=== PATIENT | female | born 1990 | race Caucasian/White ===

== ENCOUNTER → 2018-02-14 16:24 | Outpatient (CLI) | payer MEDICAID, SELFPAY ==
[2018-02-17 12:52] LABS: HPV Reflexed? NOT INDICATED
== END ==
PROVIDERS: Visit Provider Obstetrics & Gynecology
DX: Z12.4 Encounter for screening for malignant neoplasm of cervix (principal)
CPT/HCPCS: 87624; 88175; G0145

== ENCOUNTER → 2018-02-17 13:00 | Outpatient (CLI) | payer MEDICAID, SELFPAY ==
[2018-02-17 17:44] LABS: Free T3 2.5 pg/mL (2.18-3.98); Prolactin 24.8 ng/mL; T4 Free Direct 0.76 ng/dL (0.76-1.46); Thyroid Stim Hormone (TSH) 1.01 uIU/mL (0.358-3.74)
== END ==
PROVIDERS: Visit Provider Obstetrics & Gynecology
DX: R63.5 Abnormal weight gain (principal)
CPT/HCPCS: 36415; 84146; 84439; 84443; 84481

== ENCOUNTER 2019-09-22 06:59 | Emergency (ER) | payer MEDICAID, SELFPAY ==
[2019-09-22 07:00] VITALS: BP 141/91; PULSE 78; RESP 18; TEMP 36.8; O2SAT 100; BMI 41.7
--- NOTE | 2019-09-22 07:14 | RAD_ITS ---
STUDY: X-RAY - PELVIS REASON FOR EXAM: Female, 29 years old. Patient fell down the stairs yesterday. Pain in lower back. TECHNIQUE: One view of the pelvis was obtained. COMPARISON: None. FINDINGS: There is a non-specific bowel gas pattern. Normal visualized soft tissue structures. Normal bilateral iliac wings, sacroiliac joints and visualized sacrum. Normal visualized bilateral superior and inferior pubic rami. Normal pubic symphysis. Normal ischial tuberosities. Normal visualized right femoral head. Normal right acetabulum. Normal right hip joint. Normal visualized left femoral head. Normal left acetabulum. Normal left hip joint. RAD/Pelvis 1 or 2 Views IMPRESSION: Normal x-ray examination of the pelvis. Electronically Signed: Jesus Johns, at 8:10 EDT Tel , Service support ,
--- NOTE | 2019-09-22 07:23 | RAD_ITS ---
STUDY: X-RAY - LUMBAR SPINE REASON FOR EXAM: Female, 29 years old. Patient fell down the stairs yesterday. Pain across lower back. TECHNIQUE: 3 view(s) of the lumbar spine were obtained. COMPARISON: None FINDINGS: Normal lumbar lordosis. There is no substantial scoliosis. There is a normal alignment of the vertebrae. Normal vertebral bodies. There is mild spurring. There is facet spurring and sclerosis. Normal disc space heights. There is no demonstrated fracture. The soft tissue structures are unremarkable. RAD/Lumbar Spine 2 or 3 Views IMPRESSION: Mild degenerative change. No acute fracture. Electronically Signed: Carlos Eduardo Modi MD at 8:09 EDT , Service support ,
--- NOTE | 2019-09-22 07:32 | ED.VISSUMM ---
- ER Visit Summary Date of Service: 09/22/19 Chief Complaint: [Fall] History of Present Illness: The patient is a 29 F [presents to the emergency department with a fall that occurred yesterday around 1:30 PM. Patient was coming down the steps outside the home when she fell backwards. Patient complaining of pain to both sides as well as lower back. Patient states that her pain was a 10 out of 10 this morning but she took some Tylenol. Patient states she was in so much pain that she was crying this morning. She has been ambulatory. She did not strike her head. No loss of consciousness. She denies any neck pain. She denies chest pain. She denies abdominal pain.] Patient denies any paresthesias in her legs or pain radiating down her legs. Physical Examination: [HEENT-PERRLA, EOMI. Cranial nerves II through XII grossly intact. TMs clear. Mucous membranes moist. No adenopathy. Cardiovascular-regular rate and rhythm without murmur or ectopy Lungs-clear to auscultation, chest wall stable without crepitus or subcu emphysema. No chest wall tenderness on palpation or percussion. Abdomen-normoactive bowel sounds, soft, nontender, no rebound or rigidity, no peritoneal signs. Back exam-patient does have some tenderness palpation over the lower lumbar spine. There is no ecchymosis or bruising noted. Patient has tenderness to both iliac crests and again there is no evidence of ecchymosis or bruising noted. Straight leg raises. No real tenderness over the hips. Pelvis is stable. Extremities-intact ?4, normal range of motion, normal pulses, atraumatic] Test Results: [Lumbar spine x-rays as well as x-rays of the pelvis were obtained and were read by myself as no acute fractures. Emergency Department Course and Treatment: [] Treatment Plan: [Patient will be given a prescription for Naprosyn and Flexeril. Patient advised to follow-up with primary care physician telephone order clerk room service for no doc within the next 5 to 7 days.] Disposition: [Discharged home in stable condition] Impression: [Mechanical fall Contusion back] This note was generated with [employer] dictation software. It may contain incorrect words, spelling, and punctuation that were not noted in review of the chart prior to signing
--- NOTE | 2019-09-22 07:38 | ED.DEP ---
ED Disposition - Plan for ED Patient: Instructions: ED Mechanical Fall, ED Contusion Back Prescriptions: cycloBENZAPRine HCl [Flexeril] 10 mg PO TID PRN #20 tab PRN Reason: Muscle Spasm Prescription Printed Naproxen [Naprosyn] 500 mg PO BID PRN #20 tab Prescription Printed Referrals: Marcos Anna III, MD [STAFF PHYSICIAN] - 5-7 Days
== END 2019-09-22 07:54 | disposition home or self-care (01) ==
LOC: ED 07:48
PROVIDERS: Emergency Provider Emergency Medicine
DX: S30.0XXA Contusion of lower back and pelvis, initial encounter (principal); W10.9XXA Fall (on) (from) unspecified stairs and steps, initial encounter; Y93.01 Activity, walking, marching and hiking; Y92.008 Other place in unspecified non-institutional (private) residence as the place of occurrence of the external cause; Y99.8 Other external cause status
CPT/HCPCS: 72100; 72170; 99281; 99282

== ENCOUNTER → 2019-10-11 13:49 | Outpatient (CLI) | payer MEDICAID, SELFPAY ==
[2019-09-22 07:00] VITALS: BMI 41.7
[2019-10-11 14:11] LABS: Hematocrit 39.6 % (37-47); Hemoglobin 13.2 g/dL (12.0-15.0); Mean Corp Hgb Conc 33.3 g/dL (32-36); Mean Corpuscular Hgb 31.4 pg (27.0-32.0); Mean Corpuscular Volume 94.3 fL (81-99); Mean Platelet Vol. 9.2 fl (6.2-12.0); Platelet Count 273 K/mm3 (150-450); RBC Distribution Width CV 11.8 % (11.6-14.6); RBC Distribution Width SD 40.2 fl (35.1-43.9); White Blood Count 8.5 K/mm3 (4.4-11.0)
[2019-10-11 14:27] LABS: ALB/GLOB Ratio 0.9 RATIO (0.9-2.4); AST(SGOT) 13 U/L (15-37); Alanine Aminotransfer ALT/SGPT 26 U/L (13-56); Albumin, Serum 3.5 g/dL (3.2-5.0); Alkaline Phosphatase 92 U/L (45-117); Anion Gap 6 (5-15); BUN 12 mg/dL (7-18); BUN/Creat Ratio 14.3 RATIO (10-20); Calcium,Total 8.8 mg/dL (8.5-10.1); Chloride 106 mmol/L (98-107); Creatinine, Serum 0.84 mg/dL (0.55-1.02); EST Glomerular Filtration Rate 85 mL/min (>60); Est Glom Filt Rate - Afr Amer 103 mL/min (>60); Globulin 4.1 g/dL (2.2-4.2); Glucose 141 mg/dL (74-106); Potassium 3.5 mmol/L (3.5-5.1); Protein, Total 7.6 g/dL (6.4-8.2); Sodium Level 138 mmol/L (136-145)
[2019-10-13 12:21] LABS: Trileptal-Oxcarbazepine 27 ug/mL (10-35)
== END ==
DX: G40.209 Localization-related (focal) (partial) symptomatic epilepsy and epileptic syndromes with complex partial seizures, not intractable, without status epilepticus (principal)
CPT/HCPCS: 36415; 80053; 82542; 85027

== ENCOUNTER → 2020-02-28 | Outpatient (CLI) | payer MEDICAID, SELFPAY ==
[2020-02-28 10:43] VITALS: BMI 41.7
== END | disposition home or self-care (01) ==
LOC: LABSPEC 17:49
PROVIDERS: PCP Student in an Organized Health Care Education/Training Program; Referring Provider Physician Assistant; Visit Provider Physician Assistant
DX: Z20.828 Contact with and (suspected) exposure to other viral communicable diseases (principal)
CPT/HCPCS: 87635; C9803; U0003

== ENCOUNTER → 2020-10-28 16:34 | Outpatient (CLI) | payer MEDICAID, SELFPAY ==
[2020-02-28 10:43] VITALS: BMI 41.7
[2020-10-28 17:08] LABS: Hematocrit 42.5 % (37-47); Hemoglobin 14.1 g/dL (12.0-15.0); Mean Corp Hgb Conc 33.2 g/dL (32-36); Mean Corpuscular Hgb 30.3 pg (27.0-32.0); Mean Corpuscular Volume 91.4 fL (81-99); Mean Platelet Vol. 9.6 fl (6.2-12.0); Platelet Count 277 K/mm3 (150-450); RBC Distribution Width CV 12.1 % (11.6-14.6); RBC Distribution Width SD 40.6 fl (35.1-43.9); Red Blood Count 4.65 M/mm3 (4.2-5.4); White Blood Count 7.7 K/mm3 (4.4-11.0)
[2020-10-28 17:22] LABS: AST(SGOT) 13 U/L (15-37); Alanine Aminotransfer ALT/SGPT 25 U/L (13-56); Alkaline Phosphatase 86 U/L (45-117); Anion Gap 7 (5-15); BUN 11 mg/dL (7-18); Calcium,Total 9.5 mg/dL (8.5-10.1); Chloride 102 mmol/L (98-107); Creatinine, Serum 0.78 mg/dL (0.55-1.02); EST Glomerular Filtration Rate 92 mL/min (>60); Est Glom Filt Rate - Afr Amer 111 mL/min (>60); Globulin 3.9 g/dL (2.2-4.2); Glucose 84 mg/dL (74-106); Potassium 3.8 mmol/L (3.5-5.1); Protein, Total 7.9 g/dL (6.4-8.2); Sodium Level 135 mmol/L (136-145)
[2020-11-01 11:41] LABS: Trileptal-Oxcarbazepine 25 ug/mL (10-35)
== END ==
PROVIDERS: PCP Student in an Organized Health Care Education/Training Program
DX: G40.209 Localization-related (focal) (partial) symptomatic epilepsy and epileptic syndromes with complex partial seizures, not intractable, without status epilepticus (principal)
CPT/HCPCS: 36415; 80053; 82542; 85027

== ENCOUNTER → 2021-09-17 | Outpatient (CLI) | payer MEDICARE, MEDICAID, SELFPAY ==
[2021-09-17 10:01] LABS: Hemoglobin 13.7 g/dL (12.0-15.0); Mean Corp Hgb Conc 33.4 g/dL (32-36); Mean Corpuscular Hgb 31.5 pg (27.0-32.0); Mean Corpuscular Volume 94.3 fL (81-99); Mean Platelet Vol. 9.7 fl (6.2-12.0); Platelet Count 260 K/mm3 (150-450); RBC Distribution Width CV 11.6 % (11.6-14.6); Red Blood Count 4.35 M/mm3 (4.2-5.4); White Blood Count 5.7 K/mm3 (4.4-11.0)
[2021-09-17 10:42] LABS: ALB/GLOB Ratio 0.8 RATIO (0.9-2.4); AST(SGOT) 11 U/L (15-37); Alanine Aminotransfer ALT/SGPT 21 U/L (13-56); Albumin, Serum 3.4 g/dL (3.2-5.0); Alkaline Phosphatase 86 U/L (45-117); Anion Gap 7 (5-15); BUN 8 mg/dL (7-18); BUN/Creat Ratio 11.5 RATIO (10-20); Calcium,Total 8.8 mg/dL (8.5-10.1); Chloride 107 mmol/L (98-107); EST Glomerular Filtration Rate 104 mL/min (>60); Est Glom Filt Rate - Afr Amer 126 mL/min (>60); Glucose 97 mg/dL (74-106); Potassium 3.8 mmol/L (3.5-5.1); Protein, Total 7.4 g/dL (6.4-8.2); Sodium Level 138 mmol/L (136-145)
[2021-09-22 16:31] LABS: Trileptal-Oxcarbazepine 30 ug/mL (10-35)
== END | disposition home or self-care (01) ==
PROVIDERS: PCP Student in an Organized Health Care Education/Training Program
DX: G40.209 Localization-related (focal) (partial) symptomatic epilepsy and epileptic syndromes with complex partial seizures, not intractable, without status epilepticus (principal); Z79.899 Other long term (current) drug therapy
CPT/HCPCS: 36415; 80053; 82542; 85027

== ENCOUNTER → 2023-08-18 | Outpatient (CLI) | payer MEDICARE, MEDICAID, SELFPAY ==
[2023-08-23 16:09] LABS: HPV APTIMA, High Risk Negative (Negative)
== END | disposition home or self-care (01) ==
PROVIDERS: PCP Student in an Organized Health Care Education/Training Program; Visit Provider Advanced Practice Midwife
DX: Z12.4 Encounter for screening for malignant neoplasm of cervix (principal)
CPT/HCPCS: 87624; 88175; G0145

== ENCOUNTER 2024-02-18 15:36 | Emergency (ER) | payer MEDICARE, MEDICAID, SELFPAY ==
[2024-02-18 15:37] VITALS: BP 164/109; PULSE 100; RESP 16; TEMP 36.6; O2SAT 99; BMI 44.1
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
[2024-02-18 18:49] VITALS: BP 144/100; PULSE 79; RESP 16; TEMP 37.3; O2SAT 99
[2024-02-18 19:33] VITALS: BP 141/101; PULSE 75; RESP 16; TEMP 36.7; O2SAT 98
== END 2024-02-18 19:37 | disposition home or self-care (01) ==
PROVIDERS: Emergency Provider Emergency Medicine; PCP Student in an Organized Health Care Education/Training Program; Visit Provider Emergency Medicine
DX: S70.01XA Contusion of right hip, initial encounter (principal); G40.909 Epilepsy, unspecified, not intractable, without status epilepticus; V43.62XA Car passenger injured in collision with other type car in traffic accident, initial encounter
CPT/HCPCS: 73502; 99282